=== PATIENT | female | born 2005 | race Caucasian/White ===

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

== ENCOUNTER 2024-10-17 15:44 | Emergency (ER) | payer MEDICAID, OTHER ==
[~2024-10-17] VITALS: Ht 162.6 cm; Wt 63.0 kg
[~2024-10-17 15:44] MED LIST changes: +ACET5SOL2 PO; +ONDA-243 PO; -ONDA4TAB12 PO
[2024-10-17 15:46] VITALS: BP 155/84; PULSE 140; RESP 16; TEMP 98.2; O2SAT 100
== END 2024-10-17 17:00 | disposition home or self-care (01) ==
LOC: ER 15:45
DX: M79.672 Pain in left foot (principal); E10.9 Type 1 diabetes mellitus without complications; Z79.899 Other long term (current) drug therapy
CPT/HCPCS: 73630; 99283

== ENCOUNTER 2025-02-14 13:53 | Emergency (ER) | payer OTHER ==
[~2025-02-14] VITALS: Ht 165.1 cm; Wt 59.8 kg
[2025-02-14 15:26] VITALS: BP 132/78; PULSE 105; RESP 15; TEMP 98.5; O2SAT 98
== END 2025-02-14 14:54 | disposition home or self-care (01) ==
LOC: ER 13:54
DX: J06.9 Acute upper respiratory infection, unspecified (principal); Z79.1 Long term (current) use of non-steroidal anti-inflammatories (NSAID); Z79.899 Other long term (current) drug therapy
CPT/HCPCS: 82948; 99282

== ENCOUNTER 2025-08-23 21:04 | Emergency (ER) | payer OTHER ==
[~2025-08-23] VITALS: Ht 162.6 cm; Wt 64.1 kg
--- NOTE | 2025-08-23 23:03 | Physician Documentation ---
History of Present Illness ~ Chief Complaint: Hand pain Stated Complaint: L HAND PAIN Time Seen by MD: 22:23 Primary Medical Doctor: Iraj tobar in clinic HPI 20-year-old female presents to the ED complaining of left hand tingling and burning. 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 Is also a type 1 diabetic. Says that her glucose is elevated. This has been a chronic issue for her which has worsened over the last several months. Tetanus within 5 years: Yes Medication Reconciliation Allergies: Coded Allergies: No Known Allergies (Unverified , 11/17/19) Scheduled PRN Acetaminophen with Codeine (Acetaminop-Codeine 120-12 mg/5), 10 ML PO Q8H PRN for pain ONDANSETRON ODT 4mg tablet (Ondansetron Odt), 1 TABLET PO Q6H PRN for nausea/vomiting Past Medical History Past Medical History: No Pertinent History, Diabetes Past Surgical History: no surgical history Alcohol Use: None Drug Use: none Lives with: Mother, Father Lives In: Home Review of Systems All Other Systems at this time: Reviewed and Negative ROS As stated above in the HPI, otherwise all systems are reviewed and negative. Physical Exam Vital Signs: Temperature: 98.4, Source: Oral, Heart Rate: 96, Respiratory Rate: 16, BP: 141/92, Pulse Oximetry: 100, Weight: 64.090 Physical Exam General: Alert, no apparent distress. Extremities: Normal range of motion, no deformity. Positive Tinel's test positive Phalen's test left hand Neurologic: Oriented x4. Psychiatric: Normal mood and affect. Skin: Normal color, warm and dry. No edema, no ecchymosis. Progress Results/Orders Results/Orders Orders - CORNELL ERIC [facility] Ortho Orders (08/23/25 ) Vital Signs 08/23/25 08/23/25 21:10 23:24 Temp 98.4 98.6 Pulse 96 90 Resp 16 18 B/P (MAP) 141/92 138/90 Pulse Ox 100 99 Medical Decision Making Findings This patient presents with a clinical indications for carpal tunnel syndrome. This is per my exam as she was positive for both Phalen's and Tinel's. Her diabetes may contribute to this diagnosis however I did explain to her that the only true way to correct carpal tunnels is through orthopedic surgery. We will provide her with a wrist brace for nighttime to help with the current symptom Departure Disposition: HOME / SELF CARE / HOMELESS Impression: Primary Impression: Carpal tunnel syndrome Condition: Stable Discharge Instructions: Carpal Tunnel Syndrome, [id number] Additional Instructions: Explained to the patient that she needs to follow up with the primary care in order obtain a referral to go to see an orthopedic surgeon for corrective surgery. Did provide her with a a Velcro wrist brace to wear at night Referrals: NO PRIMARY CARE PROVIDER (PCP) Signature Scribe Signature: h Attestation: Scribed for Cornell Eric Sandwich Wrapper by Cornell Nunn NP . 08/24/25 00:09 CORNELL ERIC NP Aug 23, 2025 23:03
[2025-08-23 23:24] VITALS: BP 138/90; PULSE 90; RESP 18; TEMP 98.6; O2SAT 99
== END 2025-08-23 23:31 | disposition home or self-care (01) ==
LOC: ER 21:05
DX: G56.02 Carpal tunnel syndrome, left upper limb (principal); E10.65 Type 1 diabetes mellitus with hyperglycemia
CPT/HCPCS: 29125; 99283